=== PATIENT | female | born 1975 | race African-American/Black ===

== ENCOUNTER 2017-10-26 08:35 | Emergency (ER) | payer SELFPAY ==
[~2017-10-26] VITALS: Ht 167.6 cm; Wt 75.0 kg
[2017-10-26] MEDS ORDERED: MORPHINE SULFATE 4 MG/ML CPJ (NOT FOR IM USE) IV ONE (10:15)
[2017-10-26 10:38] LABS: PROTHROMBIN TIME 10.7 sec (9.4-11.6)
[2017-10-26 10:41] LABS: BASOPHILS % 0.7 % (0.0-2.0); EOSINOPHILS % 1.2 % (0.0-5.0); HEMATOCRIT. 38.2 % (36.0-48.0); HEMOGLOBIN. 13.1 g/dL (12.0-16.0); LYMPHOCYTES % 21.5 % (20.0-50.0); MEAN CORPUSCULAR HEMOGLOBIN 28.9 pg (28.0-32.0); MEAN CORPUSCULAR VOLUME 83.8 fL (81.0-99.0); MEAN PLATELET VOLUME 7.1 fl (7.4-10.4); MONOCYTES % 8.2 % (2.0-8.0); NEUTROPHILS % 68.4 % (40.0-76.0); PLATELET 430 x1000/uL (130-400); RED BLOOD CELL COUNT 4.55 mill/uL (4.2-5.4); RED CELL DISTRIBUTION WIDTH 13.7 % (11.6-14.6)
[2017-10-26 10:44] LABS: CHLORIDE 104 mEq/L (98-107)
[2017-10-26 10:50] LABS: TROPONIN I < 0.02 ng/mL (0.00-0.04)
[2017-10-26 14:01] VITALS: BP 137/87
== END 2017-10-26 14:16 | disposition home or self-care (01) ==
LOC: ER 08:54
DX: R07.9 Chest pain, unspecified (principal)
CPT/HCPCS: 36415; 71045; 80053; 81025; 83880; 84484; 85025; 85610; 93005; 96374; 99285; J2270; Z7610